=== PATIENT | female | born 1985 | race Caucasian/White ===

== ENCOUNTER 2018-05-21 04:07 | Emergency (ER) | payer OTHER ==
[~2018-05-21] VITALS: Ht 175.3 cm; Wt 113.4 kg
[~2018-05-21 04:07] MED LIST: AMOXICILLIN 50500 M1 PO; NOHOMEMEDICATIONS
[2018-05-21] MEDS ORDERED: IBUPROFEN 200200 M1 PO (04:26)
[2018-05-21] MEDS ORDERED: HYDROCODONE-AP1 EAC6 PO (04:53)
[2018-05-21] MEDS ORDERED: MOBIC15 MG PO (04:53)
[2018-05-21] MEDS ORDERED: VALIUM5 MG PO (04:53)
[2018-05-21 05:26] VITALS: BP 127/60
== END 2018-05-21 05:27 | disposition home or self-care (01) ==
LOC: ER 04:07
DX: M54.5 Low back pain (principal); Z88.4 Allergy status to anesthetic agent

== ENCOUNTER 2018-10-15 06:11 | Emergency (ER) | payer OTHER ==
[~2018-10-15] VITALS: Ht 172.7 cm; Wt 104.3 kg
[~2018-10-15 06:11] MED LIST changes: +HYDROCODONE-AP1 EAC6 PO; +IBUPROFEN 200200 M1 PO; +MOBIC15 MG PO; +VALIUM5 MG PO
[2018-10-15 06:20] VITALS: BP 124/92
[2018-10-15] MEDS ORDERED: NORFLEX100 MG PO (06:33)
[2018-10-15] MEDS ORDERED: NAPROSYN500 MG PO (06:33)
[2018-10-15] MEDS ORDERED: TRAMADOL 50 MG50 MG PO (06:33)
== END 2018-10-15 07:08 | disposition home or self-care (01) ==
LOC: ER 06:11
DX: M65.241 Calcific tendinitis, right hand (principal); M43.6 Torticollis; Z88.4 Allergy status to anesthetic agent